=== PATIENT | male | born 1965 | race Caucasian/White ===

== ENCOUNTER 2023-09-23 09:44 | Emergency (ER) | payer OTHER ==
[2023-09-23 09:59] VITALS: BP 133/82; PULSE 98; RESP 18; TEMP 97.5; BMI 33.6
[2023-09-23] MEDS ORDERED: IBUPROFEN 600 MG TABLET (FP) PO ONE (11:12)
[2023-09-23] MEDS: IBUPROFEN 600 MG TABLET (FP) PO ONE (11:13)
== END 2023-09-23 11:35 | disposition home or self-care (01) ==
LOC: FER 09:44
DX: R05.9 Cough, unspecified (principal); R50.9 Fever, unspecified; B34.9 Viral infection, unspecified; Z20.822 Contact with and (suspected) exposure to COVID-19
CPT/HCPCS: 0241U-QW; 71046-TC-FY; 93005; 99285-25